=== PATIENT | female | born 1960 | race Caucasian/White ===

== ENCOUNTER 2019-02-05 21:01 | Emergency (ER) | payer BC ==
[~2019-02-05] VITALS: Ht 177.8 cm; Wt 59.0 kg
[2019-02-05 21:09] VITALS: BP_SYST 162
[2019-02-05] MEDS ORDERED: NACL 0.9% 1,000 ML IV ONE (21:17)
[2019-02-05] MEDS ORDERED: DIPHENHYDRAMINE INJ 50 MG/ML VIAL IVP ONE (21:30)
[2019-02-05] MEDS ORDERED: FAMOTIDINE PF 20 MG/2 ML VIAL IVP ONE (21:30)
[2019-02-05] MEDS ORDERED: methylPREDNISolone SOD SUCC/PF 62.5 MG/ML VIAL IVP ONE (21:30)
[2019-02-05 21:42] LABS: BASOPHILS % (AUTO) 0.6 % (0.0-2.0); EOSINOPHILS # (AUTO) 0.1 K/uL (0.0-0.4); EOSINOPHILS % (AUTO) 1.3 % (0.0-4.0); HEMATOCRIT 41.6 % (36-48); HEMOGLOBIN 14.1 g/dL (12.0-16.0); LYMPHOCYTES # (AUTO) 2.6 K/uL (1.0-5.5); MEAN CORPUSCULAR HEMOGLOBIN 34 pg (27-31); MEAN CORPUSCULAR HGB CONC 34 % (32-36); MEAN CORPUSCULAR VOLUME 100 fL (79.0-98.0); MONOCYTES # (AUTO) 0.6 K/uL (0.0-1.0); MONOCYTES % (AUTO) 9.3 % (1.7-9.3); NEUTROPHILS # (AUTO) 3.5 K/uL (1.8-7.7); NEUTROPHILS % (AUTO) 50.8 % (40.0-70.0); PLATELET COUNT (AUTO) 239 K/uL (130-430); RED BLOOD CELL COUNT(AUTO) 4.15 MIL/uL (4.2-6.2); RED CELL DISTRIBUTION WIDTH 13.3 % (9.0-15.0); WHITE BLOOD COUNT (AUTO) 6.8 K/uL (4.8-10.8)
[2019-02-05 22:08] LABS: CALCIUM 9.5 mg/dL (8.4-11.0); CREATININE 0.55 mg/dL (0.55-1.30); POTASSIUM 3.4 mmol/L (3.5-5.1)
[2019-02-05 23:47] VITALS: BP_SYST 154
== END 2019-02-05 23:47 | disposition home or self-care (01) ==
LOC: SED 21:01
DX: I10 Essential (primary) hypertension (principal); T46.4X5A Adverse effect of angiotensin-converting-enzyme inhibitors, initial encounter; Y92.89 Other specified places as the place of occurrence of the external cause
CPT/HCPCS: 36415; 80048; 85025; 96374; 96375; 99283; J1200; J2930; J3490; J7030